=== PATIENT | female | born 1970 | race Caucasian/White ===

== ENCOUNTER → 2019-03-18 | Day surgery (SDC) | payer OTHER | END | disposition home or self-care (01) | LOC: FMAMMOTONE 12:09 | PROVIDERS: ATTEND Surgery | PROC: 0HBT3ZX Excision of Right Breast, Percutaneous Approach, Diagnostic (ICD-10-PCS; principal; 2019-03-18) | DX: Z53.8 Procedure and treatment not carried out for other reasons (principal); R92.2 Inconclusive mammogram | CPT/HCPCS: 19081 ==

== ENCOUNTER 2019-06-04 12:51 | Emergency (ER) | payer SELFPAY ==
[2019-06-04 13:01] VITALS: BP 131/86; PULSE 92; TEMP 98.7; BMI 35.1
--- NOTE | 2019-06-04 13:02 | PDOC ---
Rapid Medical Evaluation Chief Complaint: Lightheaded Time Seen by Provider: 06/04/19 12:58 Medical Evaluation: 06/04/19 12:59 I have performed a brief in-person evaluation of this patient. The patient presents with a chief complaint of: told to come to ER due to High WBC. - c/o dizziness and weakness for weeks Pertinent physical exam findings: A&Ox 3 I have ordered the following: CBc, CMP, PT/INR The patient will proceed to the ED for further evaluation. 06/04/19 13:00 Discharge Disposition - Diagnosis Dizziness - Discharge Dispostion Disposition: HOME Condition at time of disposition: Stable - Referrals - Patient Instructions - Post Discharge Activity
--- NOTE | 2019-06-04 13:55 | PDOC ---
*Physical Exam - Vital Signs Last Vital Signs Temp Pulse Resp BP Pulse Ox 98.7 F 92 H 18 131/86 100 06/04/19 12:59 06/04/19 12:59 06/04/19 12:59 06/04/19 12:59 06/04/19 12:59 ED Treatment Course - LABORATORY CBC & Chemistry Diagram: 06/04/19 14:45 06/04/19 14:45 Medical Decision Making - Medical Decision Making 06/04/19 13:54 Pt seen by Midlevel Provider under my direct supervision Ancillary studies reviewed I agree with plan as outlined by Midlevel Provider *DC/Admit/Observation/Transfer Diagnosis at time of Disposition: Abnormal laboratory test - Discharge Dispostion Disposition: HOME Condition at time of disposition: Good - Referrals - Patient Instructions Printed Discharge Instructions: Anemia Additional Instructions: At this time your lab work was within normal limits. Since you do not have any symptoms, I do recommend follow-up with your doctor as needed. - Post Discharge Activity
--- NOTE | 2019-06-04 14:16 | PDOC ---
History of Present Illness - General Chief Complaint: Revisit, Lab Variance Stated Complaint: ABNORMAL BLOOD WORK Time Seen by Provider: 06/04/19 12:58 History Source: Patient Exam Limitations: No Limitations - History of Present Illness Initial Comments: 06/04/19 14:03 48-year-old female sent to the emergency room for evaluation of elevated white count. Patient states history of anemia and normally has low H&H which she states suffers from intermittent dizziness and nausea from. Patient denies any new symptoms including chest pain, shortness of breath, headache or visual changes. Patient states no urinary difficulty, fever, diarrhea, sore throat, or recent illness. Timing/Duration: intermittent Severity: mild Associated Symptoms: reports: nausea/vomiting Past History - Travel Traveled outside of the country in the last 30 days: No Close contact w/someone who was outside of country & ill: No - Past Medical History Allergies/Adverse Reactions: Allergies Allergy/AdvReac Type Severity Reaction Status Date / Time Penicillins Allergy Verified 06/04/19 13:01 Asthma: Yes COPD: No HTN: Yes Other medical history: bladder stimulator - Surgical History Abdominal Surgery: (bladder stimulator) - Suicide/Smoking/Psychosocial Hx Smoking History: Never smoked Information on smoking cessation initiated: No Hx Alcohol Use: No Drug/Substance Use Hx: No Patient Lives Alone: No Lives with/in: spouse/SO Review of Systems - Review of Systems Able to Perform ROS?: Yes Constitutional: No: Symptoms Reported HEENTM: No: Symptoms Reported Respiratory: No: Symptoms reported Cardiac (ROS): Yes: Lightheadedness ABD/GI: Yes: Nausea : No: Symptoms Reported Musculoskeletal: No: Symptoms Reported Integumentary: No: Symptoms Reported Neurological: No: Symptoms reported Hematologic/Lymphatic: No: Symptoms Reported *Physical Exam - Vital Signs Last Vital Signs Temp Pulse Resp BP Pulse Ox 98.7 F 92 H 18 131/86 100 06/04/19 12:59 06/04/19 12:59 06/04/19 12:59 06/04/19 12:59 06/04/19 12:59 - Physical Exam General Appearance: Yes: Nourished, Appropriately Dressed. No: Apparent Distress HEENT: positive: EOMI, SANCHEZ, TMs Normal, Pharynx Normal. negative: Pale Conjunctivae Neck: positive: Normal Thyroid Respiratory/Chest: positive: Lungs Clear, Normal Breath Sounds. negative: Respiratory Distress, Accessory Muscle Use Cardiovascular: positive: Regular Rhythm, Regular Rate. negative: Murmur Gastrointestinal/Abdominal: positive: Soft. negative: Tenderness Extremity: positive: Normal Inspection Integumentary: positive: Normal Color, Warm, Moist Neurologic: positive: Motor Strength 5/5 (ambulatory) ED Treatment Course - LABORATORY CBC & Chemistry Diagram: 06/04/19 14:45 06/04/19 14:45 Medical Decision Making - Medical Decision Making 06/04/19 14:18 Complaint: Sent by primary care physician for elevated white count when she went for her normal routine physical secondary to anemia to check her H&H. Patient has no complaints besides her baseline intermittent nausea and dizziness secondary to anemia Exam vital signs stable. No acute findings. Plan: Labs, urine, lactic acid 06/04/19 15:18 Laboratory Tests 06/04/19 14:45 WBC 8.9 Hgb 8.6 L Hct 26.8 L Plt Count 482 H Absolute Neuts (auto) 6.0 Spoke to the ski patrol officer at the office and stated patient had a elevated white count of 13,000 06/04/19 15:33 Laboratory Tests 06/04/19 14:45 Lactic Acid 0.7 *DC/Admit/Observation/Transfer Diagnosis at time of Disposition: Abnormal laboratory test - Discharge Dispostion Disposition: HOME Condition at time of disposition: Good - Referrals - Patient Instructions Printed Discharge Instructions: Anemia Additional Instructions: At this time your lab work was within normal limits. Since you do not have any symptoms, I do recommend follow-up with your doctor as needed. - Post Discharge Activity
[2019-06-04 14:57] LABS: BASO % 1.7 % (0-2.0); EOS % 4.2 % (0-4.5); HEMATOCRIT 26.8 % (32.4-45.2); HEMOGLOBIN 8.6 GM/dL (10.7-15.3); MCH 23.3 pg (25.7-33.7); MCHC 32.1 g/dl (32.0-36.0); MEAN CELL VOLUME 72.6 fl (80-96); MEAN PLT VOLUME 8.1 fl (7.5-11.1); NEUT % 67.1 % (42.8-82.8); PLATELET COUNT 482 K/MM3 (134-434); RBC 3.69 M/mm3 (3.60-5.2); RDW 20.8 % (11.6-15.6); WHITE BLOOD COUNT 8.9 K/mm3 (4.0-10.0)
[2019-06-04 15:46] LABS: ALBUMIN 3.5 g/dl (3.4-5.0); BILIRUBIN,TOTAL 0.6 mg/dL (0.2-1); BLOOD UREA NITROGEN 9.8 mg/dL (7-18); CALCIUM 9.2 mg/dL (8.5-10.1); CREATININE 0.8 mg/dL (0.55-1.3); POTASSIUM 4.4 mmol/L (3.5-5.1); TOT PROT 7.3 g/dl (6.4-8.2)
[2019-06-04 16:33] LABS: INR 1.05 (0.83-1.09); PROTHROMBIN TIME (PATIENT) 12.4 SEC (9.7-13.0)
== END 2019-06-04 15:49 | disposition home or self-care (01) ==
LOC: JER 12:51
DX: D72.89 Other specified disorders of white blood cells (principal)
CPT/HCPCS: 36415; 80053; 83605; 85025; 85610; 86850; 86900; 86901; 99282-25